=== PATIENT | female | born 1965 | race Caucasian/White ===

== ENCOUNTER → 2017-09-03 | Outpatient (CLI) | payer OTHER ==
[~2017-09-03] MED LIST: CAL1TABL7 PO; EVEP1CAP PO; FISH400C3 PO; L GA1CAP PO; LORA-702 PO; MAGN300C PO; MULT-230 PO; ONDA4TAB7 PO; OXYC-306 PO; PNV1CAPS PO; POLY17PO5 PO; POTA10TA11 PO; PRIMROSE OIL PO; TRIA10.8 NAS; [UNRECOGNIZED DRUG - CODE] PO; [UNRECOGNIZED DRUG - OTHER] PO
== END | disposition home or self-care (01) ==
LOC: WOUND 14:12
PROVIDERS: ATTEND Nurse Practitioner Family
DX: S71.152A Open bite, left thigh, initial encounter (principal); W54.0XXA Bitten by dog, initial encounter; Y93.89 Activity, other specified; Y92.89 Other specified places as the place of occurrence of the external cause; Y99.8 Other external cause status
CPT/HCPCS: 11042; 87070; 87205; 99215

== ENCOUNTER → 2017-09-16 | Outpatient (CLI) | payer OTHER ==
[~2017-09-16] MED LIST changes: +ESSENTIAL OILS PO
== END ==
LOC: STAR 14:29
PROVIDERS: ATTEND Surgery
DX: Z02.9 Encounter for administrative examinations, unspecified (principal)

== ENCOUNTER → 2017-09-16 | Outpatient (CLI) | payer OTHER | END | disposition home or self-care (01) | LOC: WOUND 13:30 | PROVIDERS: ATTEND Internal Medicine | DX: S71.152D Open bite, left thigh, subsequent encounter (principal); W54.0XXD Bitten by dog, subsequent encounter | CPT/HCPCS: 99214 ==

== ENCOUNTER → 2017-10-08 | Outpatient (CLI) | payer OTHER | END | disposition home or self-care (01) | LOC: WOUND 14:22 | PROVIDERS: ATTEND Nurse Practitioner Family | DX: S71.152D Open bite, left thigh, subsequent encounter (principal); K21.9 Gastro-esophageal reflux disease without esophagitis; Z72.89 Other problems related to lifestyle; W54.0XXD Bitten by dog, subsequent encounter | CPT/HCPCS: 11043; 11046 ==

== ENCOUNTER → 2017-10-15 | Outpatient (CLI) | payer OTHER | END | disposition home or self-care (01) | LOC: WOUND 13:55 | PROVIDERS: ATTEND Internal Medicine Infectious Disease | DX: S71.152D Open bite, left thigh, subsequent encounter (principal); K21.9 Gastro-esophageal reflux disease without esophagitis; Z72.89 Other problems related to lifestyle; W54.0XXD Bitten by dog, subsequent encounter | CPT/HCPCS: 99213 ==

== ENCOUNTER → 2017-10-22 | Outpatient (CLI) | payer OTHER | END | disposition home or self-care (01) | LOC: WOUND 14:41 | PROVIDERS: ATTEND Nurse Practitioner Family | DX: S71.132D Puncture wound without foreign body, left thigh, subsequent encounter (principal); X58.XXXD Exposure to other specified factors, subsequent encounter; B95.62 Methicillin resistant Staphylococcus aureus infection as the cause of diseases classified elsewhere; K21.9 Gastro-esophageal reflux disease without esophagitis; Z72.89 Other problems related to lifestyle | CPT/HCPCS: 97597; 97598 ==

== ENCOUNTER → 2017-11-05 | Outpatient (CLI) | payer OTHER | END | disposition home or self-care (01) | LOC: WOUND 13:59 | PROVIDERS: ATTEND Nurse Practitioner Family | DX: S71.152D Open bite, left thigh, subsequent encounter (principal); B95.62 Methicillin resistant Staphylococcus aureus infection as the cause of diseases classified elsewhere; K21.9 Gastro-esophageal reflux disease without esophagitis; Z72.89 Other problems related to lifestyle; W64.XXXD Exposure to other animate mechanical forces, subsequent encounter | CPT/HCPCS: 99214 ==

== ENCOUNTER 2019-06-16 02:49 | Emergency (ER) | payer OTHER ==
[~2019-06-16] VITALS: Ht 162.6 cm; Wt 53.3 kg
[2019-06-16 02:51] VITALS: BP 171/80
== END 2019-06-16 04:44 | disposition home or self-care (01) ==
LOC: ED 03:31
DX: R04.0 Epistaxis (principal)
CPT/HCPCS: 99282